=== PATIENT | female | born 1980 | race Two or more races ===

== ENCOUNTER 2024-09-30 21:53 | Emergency (ER) | payer MEDICAID, OTHER ==
[~2024-09-30] VITALS: Ht 160 cm; Wt 121.6 kg
[2024-09-30 21:54] VITALS: BP 150/84; PULSE 71; RESP 16; TEMP 98.1; O2SAT 94
[2024-09-30] MEDS ORDERED: DOXY100C4 PO (23:46)
--- NOTE | 2024-09-30 23:50 | ED.PDOC ---
History of Present Illness(SKN HPI Comments PATIENT COMES WITH C/C OF SWELLING, REDNESS AND PAIN ON LEFT LEG ANKLE THIGH AND ARM. PATIENT REPORTS SHE WAS BITE BY MAGGOTS AND THAT IT HAS POSSIBLY SPREAD TO VAGINAL AREA. Chief Complaint: Lower Extremity Time Seen by MD: 22:02 History of Present Illness: Nurses Notes, Medications, Allergies Allergies: Coded Allergies: Codeine (Verified Allergy, Unknown, 09/30/24) Meperidine (Verified Allergy, Unknown, 09/30/24) Morphine (Verified Allergy, Unknown, 09/30/24) Penicillins (Verified Allergy, Unknown, 09/30/24) Information Source: Patient Mode of Arrival: Ambulatory Past Medical History PAST MEDICAL HISTORY: Denies Surgical History: Denies all surgeries APPLICATION SUPPORT CONSULTANT History: No Pertinent APPLICATION SUPPORT CONSULTANT History Family History Family History: Reviewed,noncontributory to illness Social History Smoker: Non-Smoker Alcohol: Denies ETOH Use Drugs: Denies Drug Use Constitutional: denies: chills, diaphoresis, fatigue, fever, malaise, sweats, weakness, others EENTM: denies: blurred vision, double vision, ear bleeding, ear discharge, ear drainage, ear pain, ear ringing, eye pain, eye redness, hearing loss, mouth pain, mouth swelling, nasal discharge, nose bleeding, nose congestion, nose pain, photophobia, tearing, throat pain, throat swelling, voice changes, others Respiratory: denies: cough, hemoptysis, orthopnea, SOB at rest, shortness of breath, SOB with excertion, stridor, wheezing, others Cardiovascular: denies: chest pain, dizzy spells, diaphoresis, Dyspnea on exertion, edema, irregular heart beat, left arm pain, lightheadedness, pa lpitations, PND, syncope, others Gastrointestinal: denies: abdomen distended, abdominal pain, blood streaked bowels, constipated, diarrhea, dysphagia, difficulty swallowing, hematemesis, melena, nausea, poor appetite, poor fluid intake, rectal bleeding, rectal pain, vomiting, others Neurological: denies: dizziness, fainting, headache, left sided numbness, left sided weakness, numbness, paresthesia, pre-existing deficit, right sided numbness, right sided weakness, seizure, speech problems, tingling, tremors, weakness, others Musculoskeletal: denies: back pain, gout, joint pain, joint swelling, muscle pain, muscle stiffness, neck pain, others Integumetry: reports: rash; denies: bruises, change in color, change in hair/nails, dryness, laceration, lesions, lumps, wounds, others Allergic/Immunocompromised: denies: Difficulty Healing, Frequent Infections, Hives, Itching, others Hematologic/Lymphatic: denies: anemia, blood clots, easy bleeding, easy bruising, swollen glands, others Endocrine: denies: excessive hunger, excessive sweating, excessive thirst, excessive urination, flushing, intolerance to cold, intolerance to heat, unexplained weight gain, unexplained weight loss, others Psychiatric: denies: anxiety, bipolar disorder, depression, hopeless, panic disorder, schizophrenia, sleepless, suicidal, others Physical Exam General Appearance: No Apparent Distress, Normal HEENT: Pharynx Normal Neck: Full Range of Motion Respiratory: Lungs Clear, No Respiratory Distress, Normal Breath Sounds Cardiovascular: No Murmur, Normal Peripheral Pulses, Regular Rate/Rhythm Breast Exam: Deferred Gastrointestinal: Non Tender, Soft Genitalia: Deferred Pelvic: Deferred Rectal: Deferred Extremities: Normal capillary refill, Normal range of motion, Non-tender Musculoskeletal : Apperance: Normal Neurologic: Alert, No Motor Deficits, Normal Affect, Normal Mood, No Sensory Deficits Cerebellar Function: Normal Reflexes: Normal Skin: Dry, Normal Color, Warm, Wounds (Indurated erythemic pimples left lateral thigh left ankle no noted drainage or excoriations) Lymphatic: No Adenopathy Was a procedure done? Was a procedure done?: No Differential Diagnosis (INTG) Differential Diagnosis: Abrasion, Cellulitis, Insect Envenomation Differential Diagnosis: AIDS/HIV X-Ray, Labs, Meds, VS Vital Signs Date Time Temp Pulse Resp B/P (MAP) Pulse Ox O2 Delivery O2 Flow Rate FiO2 09/30/24 21:54 98.1 71 16 150/84 94 98.1 X-Ray, Labs, Meds, VS Comment Script trial of doxycycline. [id number] Tylenol or Motrin as needed for the pain per labeled dosing instructions. Follow up with your PCP in two three days for wound re-evaluation ER return precautions given patient indicates understanding agrees with Time of 1ST Reevaluation: 22:15 Reevaluation 1ST: Unchanged Time of 2ND Reevaluation: 23:46 Reevaluation 2ND: Improved Patient Education/Counseling: Diagnosis, Treatment, Prognosis, Need For Follow Up Family Education/Counseling: No Family Present SEPSIS Sepsis Screen Date sepsis recognized/suspect: Sep 30, 2024 Time Sepsis recognized/suspect: 2156 Recent Procedure: No On Antibiotic Therapy: No Respiratory Rate >20: No Heart Rate >90: No Temp<36 C (96.8 F) or >38.3 C: No SBP <90 or MAP <65 mmHG: No New Acute Mental Status Change: No Is the patient on CPAP, BIPAP,: No Vital Signs Date Time Temp Pulse Resp B/P (MAP) Pulse Ox O2 Delivery O2 Flow Rate FiO2 09/30/24 21:54 98.1 71 16 150/84 94 98.1 Departure 1 Departure Time of Disposition: 23:44 Impression: Primary Impression: Bug bite with infection Qualified Codes: W57.XXXA - Bitten or stung by nonvenomous insect and other nonvenomous arthropods, initial encounter Disposition: HOME / SELF CARE / HOMELESS Condition: Stable e-Prescriptions Doxycycline Hyclate (Doxycycline Hyclate) 100 Mg Cap 100 MG PO BID for 5 Days, #10 CAP Prov: LEOPOLDO TORRES 09/30/24 Discharged With: Self Critical Care Note Critical Care Time?: No Stability Stability form required: LEOPOLDO Tucker Sep 30, 2024 23:50
== END 2024-10-01 01:02 | disposition home or self-care (01) ==
LOC: ER 21:53
DX: L08.9 Local infection of the skin and subcutaneous tissue, unspecified (principal); Z88.5 Allergy status to narcotic agent; Z88.0 Allergy status to penicillin; W57.XXXA Bitten or stung by nonvenomous insect and other nonvenomous arthropods, initial encounter; Y93.89 Activity, other specified; Y92.89 Other specified places as the place of occurrence of the external cause; Y99.8 Other external cause status